=== PATIENT | female | born 1955 | race Caucasian/White ===

== ENCOUNTER 2023-08-17 08:37 | Day surgery (SDC) | payer MEDICARE, SELFPAY ==
[2023-08-17 09:12] VITALS: BP 162/98; PULSE 89; RESP 18; TEMP 36.4; O2SAT 92
[2023-08-17] MEDS: Tropicam./Phenyleph. (1/2.5%) 5 ML BTL OS ×3 (09:24→09:38)
--- NOTE | 2023-08-17 09:44 | W.ANESPRE ---
General Info Date of Service Date Performed: 08/17/23 Height: 5 ft 4 in Weight: 50.8 kg Body Mass Index (BMI): 19.2 Surgical Procedure: Operation Date: 08/17/23 11:40 Proposed Procedure Side Surgeon p Cataract Extraction with IOL Implant Left Obey Rodríguez MD Meds Allergies and Home Medications Allergies Allergy/AdvReac Type Severity Reaction Status Date / Time No Known Allergies Allergy Unverified 08/17/23 09:08 Home Medication Medication Instructions Recorded losartan 50 mg tablet 50 mg PO DAILY 08/14/23 omeprazole 20 mg capsule,delayed 20 mg PO DAILY 08/14/23 release Current Visit Medications: Current Medications Generic Name Dose Route Start Last Admin Trade Name Freq PRN Reason Stop Dose Admin Acetaminophen 1,000 mg 08/17/23 06:00 Acetaminophen 500 Mg Tab PO 09/16/23 05:59 Q4H PRN PRN Balanced Salt Solution 500 ml 08/17/23 06:00 Balanced Salt Soln.-Plus 500 Ml Bag OP 09/16/23 05:59 DIRECTED STEVE Miscellaneous Medication 0 ml 08/17/23 06:00 Prednisolone 1%, Moxifloxacin 0.5%, Nepafenac 0.1% 5ml Btl OS 09/16/23 05:59 DIRECTED STEVE Miscellaneous Medication 0 ml 08/17/23 06:00 08/17/23 09:38 Tropicam./Phenyleph. 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 HTN (hypertension) Surgical History Surgical History History of total replacement of left shoulder joint Tobacco Smoking/Tobacco Use Status: Current every day Tobacco Type: cigarettes Alcohol Alcohol Intake: current Alcohol intake frequency: a few times a week Alcohol type: wine Substance Use Substance use: Never Substance use type: does not use Vital Signs and Lab Results Vital Signs Most Recent Vital Signs in EMR: Most Recent Vital Signs Temp Pulse Resp BP Pulse Ox 36.4 C L 89 18 162/98 H 92 08/17/23 09:12 08/17/23 09:12 08/17/23 09:12 08/17/23 09:12 08/17/23 09:12 Lab Results Blood Type / Crossmatch: No Data to Display Complete Blood Count: No Data to Display Complete Metabolic Panel: No Data to Display Liver Function Panel: No Data to Display Coagulation Panel: No Data to Display Cardiac Panel: No Data to Display Arterial Blood Gas: No Data to Display Venous Blood Gas: No Data to Display Pancreas Panel: No Data to Display Thyroid Panel: No Data to Display Infectious Disease: No Data to Display Blood Cultures: No Data to Display Toxicology Panel: No Data to Display Anesthesia Assessment and Plan Anesthesia History Personal History: No History of Anesthesia Complications Family History: No Family History of Anesthesia Complications Exercise Tolerance Exercise Tolerance: Metabolic Equivalents>4 Pertinent Negatives Pertinent Negatives: No Symptoms of GERD, No Major Cardiovascular Symptoms or Complaints and No Major Pulmonary Symptoms or Complaints Cardiac & Pulmonary Exam Cardiac Exam: Normal S1/S2 Heart Sounds Pulmonary Exam: Clear Bilateral Breath Sounds Implantable Cardiac Device Does patient have a Pacemaker or an ICD?: No Airway Exam Known Difficult Airway: No Mallampati Class: 1 Mouth Opening: Normal (> 3cm) Thyromental Distance: Less than 3 cm Neck Range of Motion: Full ROM Neck Circumference: Normal Teeth Condition: Normal Dentition ASA Classification ASA Score: ASA 2 Emergency Case?: No NPO Status NPO Status: NPO Clears >2 hours, Solids >8 hours Anesthesia Plan Resuscitation Status: Full Code Anesthesia Technique: MAC Anesthesia Airway Planned: Natural Airway Monitors Used: Standard Monitors
[2023-08-17 09:45] VITALS: BMI 19.2
[2023-08-17] MEDS: Balanced Salt Soln.-PLUS 500 ML BAG OP (10:45)
[2023-08-17] MEDS: Tetracaine 0.5% 4 ML BTL OS (10:46)
[2023-08-17] MEDS: Lidocaine 1% Pres-Free 5 ML VIAL (10:48)
[2023-08-17] MEDS: Duovisc Viscoelastic System EACH 1 EACH (10:48)
[2023-08-17] MEDS: Phenylephrine/Lidocaine (15/10) MG/ML 1 ML VIAL (10:49)
[2023-08-17] MEDS: Povidone-Iodine Ophth 30 ML BTL (10:50)
[2023-08-17 11:10] VITALS: BP 142/98; PULSE 88; RESP 16; TEMP 36.8; O2SAT 94
--- NOTE | 2023-08-17 11:11 | ROE_ITS ---
Date of service: 08/17/23 Time of Service: 11:11 Operative Note Operative Note DATE OF PROCEDURE: 08/17/23 PRE-OP DIAGNOSIS: Nuclear/posterior subcapsular cataract, left eye POST-OP DIAGNOSIS: same PROCEDURE: Cataract extraction using phacoemulsification with intraocular lens implant, left eye SURGEON: Obey Rodríguez ANESTHESIA TYPE: Local By Surgeon and MAC Refer to Anesthesia Record PATHOLOGY: none sent COMPLICATIONS: None Patient was transported to: same day Patient's condition: stable Implants: Abhilash Clareon [id number] Indications: Progressive decreased vision due to cataract, left eye Procedure Description: CATARACT SURGERY OPERATIVE REPORT PREOPERATIVE DIAGNOSIS: Nuclear/posterior subcapsular cataract, left eye POSTOPERATIVE DIAGNOSIS: Same OPERATION: Cataract extraction using phacoemulsification with posterior chamber intraocular lens implant, left eye. IOL: IOL Shipping Receiving Clerk/Model: Abhilash Clareon [id number] IOL Power: + 20.0 diopters IOL Serial Number: [id number] Optic Diameter: 6.0mm Haptic/Overall Diameter: 13.0mm PHACO INFO: AbhilashEquipio.comurion Vision System with OZil and Active Fluidics Cumulative Dispersed Energy (CDE): 8.82 seconds SURGEON: Obey Rodríguez MD, WILMA ANESTHESIA: Monitored Anesthesia Care (MAC), with local sub-tenon's anesthetic infiltration COMPLICATIONS: None SPECIMENS: None INDICATIONS FOR PROCEDURE: The patient is a 67-year-old lady with history of diminished visual acuity in her left eye secondary to the development of significant nuclear/posterior subcapsular cataract. She is significantly symptomatic that she desires cataract surgery and attempt to improve and maximize her vision. The option of cataract surgery was offered to the patient and she wished to proceed. See office notes for detailed information. PROCEDURE: The correct surgical eye was identified and marked as the left eye and the pupil was dilated in the preoperative area using mydriatics and cycloplegics. The dilated pupil size was 7.0 mm. Oral sedation was administered in the form of an Imprimis MKO Melt (midazolam 3mg/ketamine 25mg/ondansetron 2mg). The patient was brought to the operating room where cardiopulmonary monitoring was instituted and surgical time-out was performed, confirming the correct operative eye and IOL power. Topical anesthesia was administered and ophthalmic povidone-iodine 5% was instilled into the conjunctival fornices. The castro-ocular area was prepped with Betadine 10% solution and draped in the usual sterile fashion for intraocular surgery, including an aperture drape. A Tegaderm transparent film dressing was cut in half and used to cover the lashes and lid margins. 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 Care was taken to sequester the lashes and lid margins under the Tegaderm dressing. A lid speculum was placed between the lids of the operative eye and the Abhilash LuxOR Revalia operating microscope was maneuvered into position. Nell scissors were then used to make a conjunctival buttonhole approximately 6mm posterior to the limbus in the inferonasal quadrant. Blunt dissection was carried out to expose bare sclera, and a blunt-tipped sub-tenon?s anesthesia cannula was introduced and passed posteriorly along the globe where non- preserved plain lidocaine was injected into posterior sub-Tenon?s space. A sideport knife was used to make a paracentesis port. Intraocular phenylephrine/lidocaine was injected into the anterior chamber. The anterior chamber was then filled with viscoelastic. A keratome knife was used construct a two-plane clear corneal tunnel extending 2.0mm into clear cornea. A flap was raised on the anterior capsule and capsulorhexis forceps were used to complete a continuous curvilinear capsulorhexis of 5.0 mm. Balanced salt solution was then used to perform cortical cleaving hydrodissection and nuclear hydrodelineation until the lens could be freely rotated within the capsular bag. The lens nucleus was then disassembled and removed within the capsular bag and iris plane using phacoemulsification. Residual cortical material was removed using the irrigation/aspiration handpiece. The posterior capsule was carefully polished to remove as much residual lens epithelial cells as safely possible. The capsular bag was then inflated and the anterior chamber deepened with viscoelastic. The lens implant described above was inserted into the capsular bag using the Abhilash Autonome Injector. A Kuglen hook was used to dial the IOL into position. Residual viscoelastic was then removed first from posterior to the IOL, then from the anterior chamber using the I/A handpiece. The lens implant was noted to center nicely within the capsular bag. The incisions were stromally hydrated, and the anterior chamber was reformed using BSS. Then 0.5cc of moxifloxacin 1.0mg/ml were injected into the capsular bag and anterior chamber. The incisions were checked with a Weck spear and found to be secure. Several drops of ophthalmic povidone-iodine 5% were then applied to the eye followed by two drops of Imprimis combination prednisolone/moxifloxacin/nepafenac solution. The drapes were removed and a clear plastic protective eye shield was placed over the eye. The patient was then returned to Same Day Surgery in stable condition.
--- NOTE | 2023-08-17 11:11 | W.PM.DSUDISC ---
Date of service: 08/17/23 Time of Service: 11:11 Discharge Plan Disposition Patient Disposition: Home Discharge Details Attending Provider: Obey Rodríguez Primary Care Provider: Mack Lucas Home Meds and New Rx's Prescriptions: No Action losartan 50 mg tablet 50 mg PO DAILY omeprazole 20 mg capsule,delayed release(DR/EC) 20 mg PO DAILY Discharge Instructions Stand Alone Forms: Post-op Topical Cataract, Mala Pressley (DSU) Discharge Orders Discharge Orders: Discharge Order (Routine); Ordered 08/17/23 Ordered By: Obey Rodríguez DS: Diagnosis Discharge Diagnosis (1) Posterior subcapsular age-related cataract of left eye: Status: Resolved (2) Nuclear age-related cataract, left eye: Status: Resolved
--- NOTE | 2023-08-17 11:28 | W.ANESPOSTOP ---
Postoperative Evaluation Date, Time and Location Date Performed: 08/17/23 Time Performed: 11:20 Patient Location: Day Surgery Unit Vital Signs Most Recent Imported Vital Signs: Most Recent Vital Signs Temp Pulse Resp BP Pulse Ox 36.8 C 88 16 142/98 H 94 08/17/23 11:10 08/17/23 11:10 08/17/23 11:10 08/17/23 11:10 08/17/23 11:10 Pain Score Most Recent Pain Score: Most Recent Pain Score Pain Level 0 08/17/23 11:10 Assessment Mental Status: Awake (Alert & Oriented to Patient Baseline) Airway and Respiratory Function: Patent airway with normal (patient baseline) respiratory exam Cardiovascular Function: Hemodynamically Stable Hydration Status: Adequately Hydrated Nausea & Vomiting: No Nausea or Vomiting Pain: Pt. Denies Any Pain Peripheral Nerve Block: Patient did not receive a nerve block
[2023-08-17 11:35] VITALS: BP 147/96; PULSE 80; RESP 18; TEMP 37.1; O2SAT 94
== END 2023-08-17 12:20 | disposition home or self-care (01) ==
PROVIDERS: PCP Family Medicine; Visit Provider Ophthalmology
PROC: (CPT 66984; principal; 2023-08-17 11:30)
DX: H25.042 Posterior subcapsular polar age-related cataract, left eye (principal); H25.12 Age-related nuclear cataract, left eye; K21.9 Gastro-esophageal reflux disease without esophagitis; I10 Essential (primary) hypertension; F17.210 Nicotine dependence, cigarettes, uncomplicated
CPT/HCPCS: 66984; 00123; V2632

== ENCOUNTER 2024-02-08 06:49 | Day surgery (SDC) | payer MEDICARE, SELFPAY ==
[2024-02-08 07:21] VITALS: BP 160/90; PULSE 86; RESP 16; TEMP 36.2; O2SAT 95
--- NOTE | 2024-02-08 07:22 | ANES.PREOP_ITS ---
General Info Date of Service Date Performed: 02/08/24 Height: 5 ft 4 in Weight: 51.71 kg Body Mass Index (BMI): 19.5 Surgical Procedure: Operation Date: 02/08/24 08:40 Proposed Procedure Side Surgeon p Cataract Extraction with IOL Implant Right Obey Rodríguez MD Meds Allergies and Home Medications Allergies Allergy/AdvReac Type Severity Reaction Status Date / Time No Known Allergies Allergy Verified 02/08/24 07:26 Home Medication Medication Instructions Recorded losartan 50 mg tablet 50 mg PO DAILY 08/14/23 omeprazole 20 mg capsule,delayed 20 mg PO DAILY 08/14/23 release dapsone 25 mg tablet 50 mg PO DAILY 02/05/24 Current Visit Medications: Current Medications Generic Name Dose Route Start Last Admin Trade Name Freq PRN Reason Stop Dose Admin Acetaminophen 1,000 mg 02/08/24 06:00 Acetaminophen 500 Mg Tab PO 03/09/24 05:59 Q4H PRN PRN Balanced Salt Solution 500 ml 02/08/24 06:00 Balanced Salt Soln.-Plus 500 Ml Bag OP 03/09/24 05:59 DIRECTED [facility] Miscellaneous Medication 0 ml 02/08/24 06:00 Prednisolone 1%, Moxifloxacin 0.5%, Bromfenac 0.09% 5ml Btl OD 03/09/24 05:59 DIRECTED STEVE Miscellaneous Medication 0 ml 02/08/24 06:00 Tropicam./Phenyleph. 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 HTN (hypertension) Surgical History Surgical History History of left cataract surgery History of total replacement of left shoulder joint Tobacco Smoking/Tobacco Use Status: Current every day Tobacco Type: cigarettes Alcohol Alcohol Intake: current Alcohol intake frequency: a few times a week Alcohol type: wine Substance Use Substance use: Never Substance use type: does not use Vital Signs and Lab Results Vital Signs Most Recent Vital Signs in EMR: Most Recent Vital Signs Temp Pulse Resp BP Pulse Ox 36.2 C L 86 16 160/90 H 95 02/08/24 07:21 02/08/24 07:21 02/08/24 07:21 02/08/24 07:21 02/08/24 07:21 Lab Results Blood Type / Crossmatch: No Data to Display Complete Blood Count: No Data to Display Complete Metabolic Panel: No Data to Display Liver Function Panel: No Data to Display Coagulation Panel: No Data to Display Cardiac Panel: No Data to Display Arterial Blood Gas: No Data to Display Venous Blood Gas: No Data to Display Pancreas Panel: No Data to Display Thyroid Panel: No Data to Display Infectious Disease: No Data to Display Blood Cultures: No Data to Display Toxicology Panel: No Data to Display Anesthesia Assessment and Plan Anesthesia History Personal History: No History of Anesthesia Complications Family History: No Family History of Anesthesia Complications Exercise Tolerance Exercise Tolerance: Metabolic Equivalents>4 Pertinent Negatives Pertinent Negatives: No Symptoms of GERD (on med. well controlled) Cardiac & Pulmonary Exam Cardiac Exam: Normal S1/S2 Heart Sounds Pulmonary Exam: Rhonchi Present (bilateral ) and Active Dry Cough Cardiac and Pulmonary Comment:: Smoker cough. Normal for her Implantable Cardiac Device Does patient have a Pacemaker or an ICD?: No Airway Exam Known Difficult Airway: No Mallampati Class: 1 Mouth Opening: Normal (> 3cm) Thyromental Distance: Less than 3 cm Neck Range of Motion: Full ROM Neck Circumference: Normal Teeth Condition: Normal Dentition ASA Classification ASA Score: ASA 2 Emergency Case?: No NPO Status NPO Status: NPO Clears >2 hours, Solids >8 hours Anesthesia Plan Resuscitation Status: Full Code Anesthesia Technique: MAC Anesthesia Airway Planned: Natural Airway Monitors Used: Standard Monitors
[2024-02-08 07:26] VITALS: BMI 19.5
[2024-02-08] MEDS: Tetracaine 0.5% 4 ML BTL OD (08:19)
[2024-02-08] MEDS: Balanced Salt Soln.-PLUS 500 ML BAG OP (08:26)
[2024-02-08] MEDS: Povidone-Iodine Ophth 30 ML BTL (08:26)
[2024-02-08] MEDS: Lidocaine 1% Pres-Free 5 ML VIAL (08:27)
[2024-02-08] MEDS: Duovisc Viscoelastic System EACH 1 EACH (08:28)
[2024-02-08 08:50] VITALS: BP 115/99; PULSE 84; RESP 18; TEMP 36.4; O2SAT 94
--- NOTE | 2024-02-08 08:50 | ROE_ITS ---
Date of service: 02/08/24 Time of Service: 08:50 Operative Note Operative Note DATE OF PROCEDURE: 02/08/24 PRE-OP DIAGNOSIS: Nuclear/posterior subcapsular cataract, right eye POST-OP DIAGNOSIS: same PROCEDURE: Cataract extraction using phacoemulsification with intraocular lens implant, right eye SURGEON: Obey Rodríguez ANESTHESIA TYPE: Local By Surgeon and MAC Refer to Anesthesia Record ESTIMATED BLOOD LOSS: 0 PATHOLOGY: none sent COMPLICATIONS: None Patient was transported to: same day Patient's condition: stable Implants: Abhilash Clareon [id number] Indications: Progressive decreased vision due to cataract, right eye Procedure Description: CATARACT SURGERY OPERATIVE REPORT PREOPERATIVE DIAGNOSIS: Nuclear/posterior subcapsular cataract, right eye POSTOPERATIVE DIAGNOSIS: Same OPERATION: Cataract extraction using phacoemulsification with posterior chamber intraocular lens implant, right eye. IOL: IOL Investigation Clerk/Model: Abhilash Clareon [id number] IOL Power: + 20.0 diopters IOL Serial Number: [id number] Optic Diameter: 6.0mm Haptic/Overall Diameter: 13.0mm PHACO INFO: Abhilash ABT Molecular Imagingurion Vision System with OZil and Active Fluidics Cumulative Dispersed Energy (CDE): 7.61 seconds SURGEON: Obey Rodríguez MD, WILMA ANESTHESIA: Monitored Anesthesia Care (MAC), with local sub-tenon's anesthetic infiltration COMPLICATIONS: None SPECIMENS: None INDICATIONS FOR PROCEDURE: The patient is a 68-year-old lady with history of diminished visual acuity in both eyes secondary to the development of bilateral cataract. She has already undergone cataract surgery in the left eye and is doing well postoperatively. She now presents for cataract surgery in the right eye. See office notes for detailed information. PROCEDURE: The correct surgical eye was identified and marked as the right eye and the pupil was dilated in the preoperative area using mydriatics and cycloplegics. The dilated pupil size was 7.0 mm. Oral sedation was administered in the form of an Imprimis MKO Melt (midazolam 3mg/ketamine 25mg/ondansetron 2mg). The patient elected to proceed without oral sedation. The patient was brought to the operating room where cardiopulmonary monitoring was instituted and surgical time-out was performed, confirming the correct operative eye and IOL power. Topical anesthesia was administered and ophthalmic povidone-iodine 5% was instilled into the conjunctival fornices. The castro-ocular area was prepped with Betadine 10% solution and draped in the usual sterile fashion for intraocular surgery, including an aperture drape. A Tegaderm transparent film dressing was cut in half and used to cover the lashes and lid margins. Care was taken to sequester the lashes and lid margins under the Tegaderm dressing. A lid speculum was placed between the lids of the operative eye and the Abhilash Lux[employer] Revalia operating microscope was maneuvered into position. Nell scissors were then used to make a conjunctival buttonhole approximately 6mm posterior to the limbus in the inferonasal quadrant. Blunt dissection was carried out to expose bare sclera, and a blunt-tipped sub-tenon?s anesthesia cannula was introduced and passed posteriorly along the globe where non- preserved plain lidocaine was injected into posterior sub-Tenon?s space. A sideport knife was used to make a paracentesis port. Intraocular phenylephrine/lidocaine was injected into the anterior chamber. The anterior chamber was then filled with viscoelastic. A keratome knife was used to construct a two--plane clear corneal tunnel extending 2.0mm into clear cornea. A flap was raised on the anterior capsule and capsulorhexis forceps were used to complete a continuous curvilinear capsulorhexis of 5.5 mm. Balanced salt solution was then used to perform cortical cleaving hydrodissection and nuclear hydrodelineation until the lens could be freely rotated within the capsular bag. The lens nucleus was then disassembled and removed within the capsular bag and iris plane using phacoemulsification. Residual cortical material was removed using the I/A handpiece. The posterior capsule was carefully polished to remove as much residual lens epithelial cells as safely possible. The capsular bag was then inflated and the anterior chamber deepened with cohesive viscoelastic. The lens implant described above was inserted into the capsular bag using the Abhilash Autonome Injector. A Kuglen hook was used to dial the IOL into position. Residual viscoelastic was then removed first from posterior to the IOL, then from the anterior chamber using the I/A handpiece. The lens implant was noted to center nicely within the capsular bag. The incisions were stromally hydrated, and the anterior chamber was reformed using BSS. Then 0.5cc of moxifloxacin 1.0mg/ml were injected into the capsular bag and anterior chamber. The incisions were checked with a Weck spear and found to be secure. Several drops of ophthalmic povidone-iodine 5% were then applied to the eye followed by two drops of combination steroid/NSAID/antibiotic solution. The drapes were removed and a clear plastic protective eye shield was placed over the eye. The patient was then returned to Same Day Surgery in stable condition.
[2024-02-08 09:05] VITALS: BP 140/94; PULSE 82; RESP 16; TEMP 36.1; O2SAT 92
--- NOTE | 2024-02-08 09:16 | W.ANESPOSTOP ---
Postoperative Evaluation Date, Time and Location Date Performed: 02/15/24 Time Performed: 09:00 Patient Location: Day Surgery Unit Vital Signs Most Recent Imported Vital Signs: Most Recent Vital Signs Temp Pulse Resp BP Pulse Ox 36.1 C L 82 16 140/94 H 92 02/08/24 09:05 02/08/24 09:05 02/08/24 09:05 02/08/24 09:05 02/08/24 09:05 Pain Score Most Recent Pain Score: Most Recent Pain Score Pain Level 0 02/08/24 09:05 Assessment Mental Status: Awake (Alert & Oriented to Patient Baseline) Airway and Respiratory Function: Patent airway with normal (patient baseline) respiratory exam Cardiovascular Function: Hemodynamically Stable Hydration Status: Adequately Hydrated Nausea & Vomiting: No Nausea or Vomiting Pain: Pt. Denies Any Pain Peripheral Nerve Block: Patient did not receive a nerve block
== END 2024-02-08 09:20 | disposition home or self-care (01) ==
LOC: SUR 06:50
PROVIDERS: PCP Family Medicine; Visit Provider Ophthalmology
PROC: (CPT 66984; principal; 2024-02-08 08:30)
DX: H25.041 Posterior subcapsular polar age-related cataract, right eye (principal); H25.11 Age-related nuclear cataract, right eye; I10 Essential (primary) hypertension; Z98.42 Cataract extraction status, left eye
CPT/HCPCS: 66984; 00123; V2632; J2003